=== PATIENT | female | born 1980 | race Caucasian/White ===

== ENCOUNTER 2018-10-16 04:52 | Inpatient (IN) | payer OTHER ==
[~2018-10-16] VITALS: Ht 165.1 cm; Wt 72.6 kg
[2018-10-16] VITALS (44 sets, daily range): BP systolic 114–164; BP diastolic 52–105
[~2018-10-16 04:52] MED LIST: HYDROCODONE-AP1 EAC6 PO; IBUPROFEN 400400 M2 PO; LEVEMIR SUBQ; NORCO 5-325 TA1 EACH PO; NOVOLOG100 UNIT/1 SUBQ; PAXIL10 MG; PEPCID20 MG PO; POTASSIUM20 PO; ZOFRAN ODT4 MG DISSOLVE; ZOFRAN ODT8 MG PO
[2018-10-16 05:10] LABS: URINE BLOOD TRACE (Negative); URINE CLARITY SL CLOUDY; URINE COLOR YELLOW; URINE GLUCOSE-RANDOM* 2+ (Negative); URINE KETONES 3+ (Negative); URINE LEUKOCYTES-REFLEX TRACE (Negative); URINE NITRITE-REFLEX NEGATIVE (Negative); URINE PROTEIN (DIPSTICK) 1+ (Negative); URINE SPECIFIC GRAVITY >= 1.030 (1.005-1.035); URINE UROBILINOGEN 0.2 E.U./dl (0.2-1.0)
[2018-10-16 05:10] LABS: ABSOLUTE NEUTROPHILS 4.9 thou/uL (1.4-8.2); BASOPHILS 0.6 % (0.0-2.0); EOSINOPHILS 0.2 % (0.0-3.0); HEMATOCRIT 42.9 % (37.0-47.0); LYMPHOCYTES 21.1 % (24.0-44.0); MCH 28.9 pg (26.0-34.0); MCHC 32.7 g/dL (28.0-37.0); MCV 88.4 fL (80.0-100.0); MONOCYTES 6.8 % (1.0-8.0); PLATELET COUNT 323 thou/uL (150-400); POLYS 71.3 % (36.0-66.0); RBC 4.85 mil/uL (4.20-5.00); RDW 14.4 % (10.5-14.5); WBC 6.9 thou/uL (4.0-11.0)
[2018-10-16 05:18] LABS: ICTOTEST (BILI CONFIRMATORY) Negative (Negative); URINE BILIRUBIN NEGATIVE (Negative)
[2018-10-16 05:26] LABS: CALCIUM 9.3 mg/dL (8.5-10.1); CREATININE 0.9 mg/dL (0.6-1.0); POTASSIUM 4.4 mmol/L (3.5-5.1)
[2018-10-16 05:28] LABS: BACTERIA-REFLEX 1-9 Few /HPF (None Seen); CASTS None Seen /LPF (None Seen); CRYSTALS None Seen /LPF (None Seen); MUCUS 0-3 Light strn/LPF (None Seen); SQUAMOUS >10 Many /LPF (0-3); URINE RBC 3-10 Few /HPF (0-2)
[2018-10-16 05:29] LABS: AMORPHOUS URATES Moderate /LPF (None Seen)
[2018-10-16 05:31] LABS: ALBUMIN 3.6 g/dL (3.4-5.0); TOTAL BILIRUBIN 0.9 mg/dL (<0.1-1.0); TOTAL PROTEIN 7.7 g/dL (6.4-8.2)
[2018-10-16 06:02] LABS: CALCIUM 9.3 mg/dL (8.5-10.1); CREATININE 0.9 mg/dL (0.6-1.0); POTASSIUM 4.3 mmol/L (3.5-5.1)
[2018-10-16 06:06] LABS: ALBUMIN 3.6 g/dL (3.4-5.0); MAGNESIUM 1.7 mg/dL (1.8-2.4); PHOSPHORUS 3.7 mg/dL (2.5-4.9)
[2018-10-16 06:40] LABS: HCO3 10.3 mmol/L (22.0-26.0); PCO2 26.4 mmHg (35.0-45.0); sO2 96.5 % (92.0-98.0)
[2018-10-16 06:41] LABS: pH 7.207 (7.360-7.450)
--- NOTE | 2018-10-16 07:00 | NUR ---
ADMISSION NOTE: PT ARRIVED AT APPROX 0650 10/16/18, PT ALERT AND ORIENTED X 4, BUT ABLE TO FOLLOW ALL COMMANDS, MAG INFUSING AT ARRIVAL. PT ON RA, SATS IN THE HIGH 90'S, PT ST ON THE MONITOR. WILL NOTIFY DR DOWNEY ON PT ARRIVAL, AND WILL FOLLOW DKA PROTOCOL.
[2018-10-16 09:33] LABS: CALCIUM 8.1 mg/dL (8.5-10.1); CREATININE 0.9 mg/dL (0.6-1.0); MAGNESIUM 1.9 mg/dL (1.8-2.4); PHOSPHORUS 2.7 mg/dL (2.5-4.9)
[2018-10-16 13:47] LABS: ALBUMIN 2.8 g/dL (3.4-5.0); CALCIUM 8.2 mg/dL (8.5-10.1); CREATININE 0.8 mg/dL (0.6-1.0); MAGNESIUM 1.9 mg/dL (1.8-2.4); PHOSPHORUS 2.3 mg/dL (2.5-4.9); POTASSIUM 4.2 mmol/L (3.5-5.1)
--- NOTE | 2018-10-16 18:32 | NUR ---
ASSUMED CARE @ 0650 10/16/18, PT ASSESSMENTS AND VS COMPLETE PER ICU PROTOCOL, PT ALERT AND ORIENTED X 4, PT ABLE TO FOLLOW COMMANDS. PT ST; PAC'S, PT AFEBRILE, NO EDEMA PRESENT. PT ON RA, NO SIGNS OF SOA. PT NOW OFF INSULIN GTT, NOW ON SLIDING SCALE, LANTUS AT NIGHT, CARB CONTROLLED DIET IN PLACE. PT ABLE TO VOID, GOP NOTED. CC TELE ORDERS IN PLACE. PLAN OF CARE- AID IN TRANSITION FOR TRANSFER.
--- NOTE | 2018-10-16 22:11 | NUR ---
Pt with stable VS and no c/o nausea. PRN fentanyl given for c/o headache with some relief achieved. Report called to next RN and pt awaiting transfer to room 349.
[2018-10-17] VITALS: BP 150/104
[2018-10-17 02:30] VITALS: BP 149/105
--- NOTE | 2018-10-17 05:37 | NUR ---
PT WAS A TRANSFER FROM ICU. CHIEF COMPLIANT WAS HEADACHE. PT STATES FENTANYL RELIEF IS SHORT LIVED. PT STARTED HAVING NAUSEA. CALLED PROVIDER 2X AND RECEIVED ORDERS FOR NAUSEA MEDICATION, AND BENADRYL. ALSO PT BLOOD PRESSURE WAS TRENDING HIGHER, POSSIBLY DUE TO PAIN. GAVE ONE TIME DOSE OF IV HYDRALAZINE, AND STARTED PT ON METOTROPOLOL XL. FOLLOWING POC WITH IVF. HOURLY ROUNDING.
[2018-10-17 05:56] LABS: CALCIUM 8.3 mg/dL (8.5-10.1); CREATININE 0.6 mg/dL (0.6-1.0); MAGNESIUM 1.6 mg/dL (1.8-2.4); PHOSPHORUS 2.1 mg/dL (2.5-4.9); POTASSIUM 4.2 mmol/L (3.5-5.1)
[2018-10-17 07:51] VITALS: BP 166/94
[2018-10-17 11:38] VITALS: BP 142/99
--- NOTE | 2018-10-17 16:33 | NUR ---
Assumed care of Pt at 0700. Pt AOx4 complaining of headache. Good relief with Tramadol. BP showing improvement. Headache appears to be subsiding. ambulating indepedently in hallways. IV fluids infusing per order. sinus rhythm and atrial bigeminy on telemetry. good progress toward poc goals.
[2018-10-17 16:49] VITALS: BP 128/74
[2018-10-17 19:15] VITALS: BP 120/76
[2018-10-18 04:10] VITALS: BP 121/74
[2018-10-18 04:57] LABS: HEMATOCRIT 38.4 % (37.0-47.0); HEMOGLOBIN 12.7 gm/dL (12.0-15.0); MCH 28.6 pg (26.0-34.0); MCHC 33.1 g/dL (28.0-37.0); MCV 86.3 fL (80.0-100.0); RBC 4.45 mil/uL (4.20-5.00); WBC 6.2 thou/uL (4.0-11.0)
[2018-10-18 05:07] LABS: PLATELET COUNT 242 thou/uL (150-400)
[2018-10-18 05:08] LABS: CALCIUM 8.6 mg/dL (8.5-10.1); CREATININE 0.5 mg/dL (0.6-1.0); POTASSIUM 3.4 mmol/L (3.5-5.1)
[2018-10-18 05:14] LABS: ALBUMIN 2.9 g/dL (3.4-5.0); MAGNESIUM 1.7 mg/dL (1.8-2.4); TOTAL BILIRUBIN 0.6 mg/dL (<0.1-1.0)
--- NOTE | 2018-10-18 05:38 | NUR ---
REMOVED IV IN PTS RIGHT HAND IT HAD CLOTTED OFF. PT STATES NO N/V NOR HEADACHE. PT RESTED COMFORTABLY ALL EVENING. HOURLY ROUNDING.
[2018-10-18 06:20] LABS: ABSOLUTE NEUTROPHILS 2.4 thou/uL (1.4-8.2); ATYPICAL LYMPHS 1 %
[2018-10-18 07:02] VITALS: BP 147/94
[2018-10-18 09:03] VITALS: BP 147/94
[2018-10-18 10:21] VITALS: BP 147/94
--- NOTE | 2018-10-18 11:32 | NUR ---
Assumed care of Pt at 0700. pt hypoglycemic this morning - asymptomatic - sugar improved after couple of juice boxes. denies headache. blood pressure improved. up ad matt w/ steady gait. stable for d/c. all questions and concerns addressed w/ patient.
== END 2018-10-18 11:15 | disposition home or self-care (01) | DRG 639 ==
LOC: ER 04:52 → EROBS 05:41 → ICU 06:24 → 3W 22:58
PROVIDERS: Emergency Medicine; ADMIT Family Medicine
DX: E11.10 Type 2 diabetes mellitus with ketoacidosis without coma (principal); E86.0 Dehydration; R51 Headache; I16.0 Hypertensive urgency; Z79.4 Long term (current) use of insulin; Z79.1 Long term (current) use of non-steroidal anti-inflammatories (NSAID); Z79.899 Other long term (current) drug therapy
CPT/HCPCS: 10779

== ENCOUNTER 2019-07-29 21:18 | Inpatient (IN) | payer OTHER ==
[~2019-07-29] VITALS: Ht 165.1 cm; Wt 64.9 kg
[~2019-07-29 21:18] MED LIST changes: +HUMALOG100 UNIT/1 SUBQ; +LEVEMIR100 UNIT/1 SUBQ
[2019-07-29 21:37] VITALS: BP 135/84
[2019-07-29] MEDS ORDERED: LISINOPRIL PO (21:43)
[2019-07-29 21:45] LABS: ABSOLUTE NEUTROPHILS 16.1 thou/uL (1.4-8.2); BASOPHILS 0.5 % (0.0-2.0); HEMATOCRIT 47.2 % (37.0-47.0); HEMOGLOBIN 14.9 gm/dL (12.0-15.0); LYMPHOCYTES 5.7 % (24.0-44.0); MCH 28.5 pg (26.0-34.0); MCHC 31.5 g/dL (28.0-37.0); MCV 90.5 fL (80.0-100.0); MONOCYTES 6.2 % (1.0-8.0); PLATELET COUNT 432 thou/uL (150-400); POLYS 87.6 % (36.0-66.0); RBC 5.22 mil/uL (4.20-5.00); RDW 14.5 % (10.5-14.5); WBC 18.4 thou/uL (4.0-11.0)
[2019-07-29 21:49] LABS: CALCIUM 10.6 mg/dL (8.5-10.1); CREATININE 1.3 mg/dL (0.6-1.0)
[2019-07-29 21:55] LABS: TOTAL BILIRUBIN 0.6 mg/dL (<0.1-1.0); TOTAL PROTEIN 8.9 g/dL (6.4-8.2)
[2019-07-29 22:16] LABS: MAGNESIUM 2.1 mg/dL (1.8-2.4); PHOSPHORUS 2.8 mg/dL (2.5-4.9)
[2019-07-29 23:31] LABS: URINE BILIRUBIN 2+ (Negative); URINE BLOOD TRACE (Negative); URINE CLARITY CLEAR; URINE COLOR YELLOW; URINE GLUCOSE-RANDOM* 2+ (Negative); URINE KETONES 3+ (Negative); URINE LEUKOCYTES-REFLEX NEGATIVE (Negative); URINE NITRITE-REFLEX NEGATIVE (Negative); URINE PROTEIN (DIPSTICK) TRACE (Negative); URINE SPECIFIC GRAVITY >= 1.030 (1.005-1.035); URINE UROBILINOGEN 0.2 E.U./dl (0.2-1.0)
[2019-07-30] VITALS (28 sets, daily range): BP systolic 122–155; BP diastolic 54–86
[2019-07-30 01:41] LABS: CALCIUM 8.3 mg/dL (8.5-10.1); CREATININE 1.1 mg/dL (0.6-1.0); MAGNESIUM 1.9 mg/dL (1.8-2.4); PHOSPHORUS 2.8 mg/dL (2.5-4.9); POTASSIUM 3.9 mmol/L (3.5-5.1)
[2019-07-30 05:41] LABS: CALCIUM 8.5 mg/dL (8.5-10.1)
[2019-07-30 05:44] LABS: PHOSPHORUS 2.1 mg/dL (2.5-4.9)
--- NOTE | 2019-07-30 08:05 | EKG ---
[facility] [place] [address] ELECTROCARDIOGRAM REPORT Name: LUPE ACEVES Room #: 243-P ADM IN M.R.#: [id number] Admission: 07/29/19 Attend Phys: Jimmy Romero MD Discharge: Date of : 76 Report #: [id number] THIS REPORT FOR: cc: Jimmy Romero MD, Neal A. MD Lundgren, Craig H. 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 Hall : 1980 Requested By: Pierce Kc Order Number: [id number] MD: Raffaele Navarro Measurements Intervals [place] Rate: 124 P: 75 OK: 179 QRS: 37 QRSD: 89 T: -44 QT: 359 QTc: 516 Interpretive Statements Sinus tachycardia Consider biatrial enlargement Abnormal T, consider ischemia, diffuse leads Prolonged QT interval Baseline wander in lead(s) V1 Compared to ECG 09/28/2017 02:33:16 Nonspecific change in the ST and T-wave segments Electronically Signed On 07-30-2019 8:04:19 NOVELTY TWISTER OPERATOR by Raffaele Navarro [email or web address] <ELECTRONICALLY SIGNED> By: Raffaele Navarro MD, [facility] 07/30/19 0804 47 47 Raffaele Navarro MD, [facility] /EPI
--- NOTE | 2019-07-30 08:07 | NUR ---
0038: Pt admitted to ICU room 243. c/o of severe headached aggravated by light and movement, and nausea. DKA protocol started. 0200: Pt up with assist x1 to void. Still feels "queasy", but no vomitting. 0630: Labs drawn through shift per protocol. Insulin gtt titrated to keep blood sugar 100-130, has been on 3 units/hour since 299. Anion Gap down to 15 at 0530 lab draw. Pt still c/o of severe headache; has been been receiving Fentanyl 12.5 mcg IVP approximately q 2-3 hours without much relief.
--- NOTE | 2019-07-30 10:05 | NUR ---
Nutrition: pt admitted to ICU with DKA, N/V, headache. Hx brittle DM. Anion gap closed and diet just advanced to carb controlled this am. Pt drank some milk. Was sleeping soundly so did not disturb. Per ICU rounds, pt suffering severe headaches, possibly migraine. Recent return from cruise, physician suspects DKA related to recent vacation/exhaustion. BG 202-222. No recent A1C. Continues on insulin drip. Some weight discrepancies. Weight taken at 133# and also weighed this on April admit (DKA) but pt reported weights around 152#. Will followup on weight/po trends next week. RD available for education needs if warranted. Followup 08/01 or 08/02.
--- NOTE | 2019-07-30 14:19 | NUR ---
chart review, cm consulted for education?. cm visited with pt quietly in room with light off. pt has towel over her head rt big head ache. intro dcp and cm. pt reported has dm supplies and home, that work. she independent, she employee of [employer]. no past hh or rehab. "/ana. no concerns or needs voiced during visit. will cont following as needed for dc needs.
--- NOTE | 2019-07-30 16:59 | NUR ---
ANION GAP NOW 15. INSULIN DRIP OFF AT 1330. CARB CONTROLLED DIET WITH VERY POOR APPETITE. D51/2 NS WITH 20 MEQ OF KCL CHANGED TO NS AT 150ML/HR. STRUGGLING WITH PAIN CONTROL. FENTANYL 25MCG NOT EFFECTIVE. NOW ON 10MG OXY IR. BETTER RELIEF.
[2019-07-31] VITALS (18 sets, daily range): BP systolic 136–166; BP diastolic 82–99
--- NOTE | 2019-07-31 04:12 | NUR ---
NO OVERNIGHT EVENTS. PT. SLEPT WELL THROUGH MOST OF SHIFT WITH MINIMAL PAIN FROM HEADACHE. NO COMPLAINTS OF N/V. UP X2 TO THE BATHROOM WITH MINIMAL ASSIST. SEEMS TO BE TOLERATING PO BETTER THIS SHIFT. PT. IS PROGRESSING TOWARDS GOALS. CONTINUE POC. PT. HOPEFUL TO GO HOME TODAY. WILL CONTINUE TO MONITOR.
[2019-07-31 05:06] LABS: ABSOLUTE NEUTROPHILS 4.1 thou/uL (1.4-8.2); BASOPHILS 0.3 % (0.0-2.0); EOSINOPHILS 0.4 % (0.0-3.0); HEMATOCRIT 34.7 % (37.0-47.0); LYMPHOCYTES 28.3 % (24.0-44.0); MCH 28.9 pg (26.0-34.0); MCV 90.4 fL (80.0-100.0); MONOCYTES 9.9 % (1.0-8.0); POLYS 61.1 % (36.0-66.0); RBC 3.83 mil/uL (4.20-5.00); RDW 14.5 % (10.5-14.5); WBC 6.6 thou/uL (4.0-11.0)
[2019-07-31 05:07] LABS: HEMOGLOBIN 11.1 gm/dL (12.0-15.0); PLATELET COUNT 233 thou/uL (150-400)
[2019-07-31 05:37] LABS: CALCIUM 8.2 mg/dL (8.5-10.1); CREATININE 0.7 mg/dL (0.6-1.0); POTASSIUM 3.9 mmol/L (3.5-5.1)
[2019-07-31 05:40] LABS: ALBUMIN 2.3 g/dL (3.4-5.0); TOTAL BILIRUBIN 0.6 mg/dL (<0.1-1.0); TOTAL PROTEIN 5.6 g/dL (6.4-8.2)
[2019-07-31] MEDS ORDERED: HUMALOG100 UNIT/1 SUBQ (12:50)
[2019-07-31 12:58] LABS: CHOLESTEROL 155 mg/dL (<200); HDL CHOLESTEROL 51 mg/dL (>40); LDL CHOLESTEROL 90 mg/dL (<100); TRIGLYCERIDE 73 mg/dL (<150); VLDL 15 mg/dL (<40)
--- NOTE | 2019-07-31 15:20 | NUR ---
DENIES HEADACHE DISCOMFORT. UP IN CHAIR PER PT PREFERENCE FOR BREAKFAST. ST, ROOM AIR, TOLERATING MEALS, DENIES ABDOMINAL DISCOMFORT, VOIDING ADEQUATE URINE. DR. CLAY PRESENT TO SEE PT AND EMPHASIZED THE IMPORTANCE OF TAKING LONG ACTING INSULIN EVEN WHEN NOT EATING SINCE SHE IS A TYPE 1 DIABETIC. INSULIN ADMINISTRATION ADJUSTED. DR. BOOTHE PRESENT TO SEE PT. DISCUSSED PLAN OF CARE REGARDING INSULIN. PT HAS HAND WRITTEN NOTES REGARDING CHANGES TO INSULIN. AMBULATED ALL AROUND THE ICU SEVERAL TIMES WITH STAND BY ASSIST OF RN, WELL TOLERATED. PT DISCHARGING HOME. IV DC'D. FAMILY PRESENT TO ASSIST PT TO HOME. SEE DISCHARGE INSTRUCTIONS FOR DETAILS.
[2019-08-01 00:06] LABS: GLYCOHEMOGLOBIN (HGB A1C) 10.7 % (4.8-5.6)
--- NOTE | 2019-08-01 12:47 | HC ---
[facility] [place] [address] CONSULTATION Name: LUPE ACEVES Room #: 243-P [facility] IN M.R.#: [id number] Admission: 07/29/19 Attend Phys: Jimmy Romero MD Discharge: 07/31/19 Date of : 76 Report #: [id number] THIS REPORT FOR: cc: Jimmy Romero MD, Neal A. MD Al-Mubaslat, Ahmad MD ~ CC: Jimmy Romero DATE OF SERVICE: 07/31/2019 ENDOCRINE CONSULTATION NOTE CONSULTING PHYSICIAN: Dr. Romero. REASON FOR CONSULTATION: DKA, uncontrolled type 1 diabetes mellitus. HISTORY OF PRESENT ILLNESS: This is a 39-year-old female patient whose medical background is significant for type 1 diabetes mellitus diagnosed in 2010 as well as hypertension. The patient is maintained on a combination of Toujeo insulin 10 units twice a day as well as Humalog insulin taken as per an insulin to carbohydrate ratio of 1:10. She notes that she has had blood glucose values that are mostly in the high 100 to low 200 range and no issues with hypoglycemia over the past few months. She is not aware of her most recent hemoglobin A1c. The patient indicates that she gets routine eye exams and that she has not had an issue with diabetic retinopathy, nephropathy or neuropathy. Additionally, the patient has hypertension and reports that it is well controlled on lisinopril 10 mg daily. The patient was at her usual state of health until the day before presentation when she was tired from a trip she had and slept all day and not taken her insulin. Subsequently, she woke up with severe headaches, nausea, vomiting and presented to the ER where she was found to be in diabetic ketoacidosis. Subsequently, she was admitted to the ICU where she was managed with IV insulin and IV fluid support for 24 hours. REVIEW OF SYSTEMS: CONSTITUTIONAL: Fatigue, tiredness, but not fever or chills or body weight changes. HEENT: Negative for sore throat, sinus pain or ear drainage. PULMONARY: Negative for shortness of breath, cough or hemoptysis. CARDIAC: Negative for chest pain, palpitations, syncope or presyncope. GASTROINTESTINAL: Abdominal discomfort, nausea, vomiting. NEUROLOGY: Headaches, but not seizure activity or loss of consciousness. PSYCHIATRIC: Negative for delusions, hallucinations. UROLOGY: Negative for dysuria, hematuria. Otherwise, review of systems [address] [address] CONSULTATION Name: LUPE ACEVES Room #: 243-P [facility] IN ..#: [id number] Admission: 07/29/19 Attend Phys: Jimmy Romero MD Discharge: 07/31/19 Date of : 76 Report #: [id number] noncontributory other than those mentioned in HPI. PAST MEDICAL HISTORY: 1. Type 1 diabetes mellitus with multiple DKA episodes in the past. 2. Hypertension. 3. Scoliosis. 4. Right arm DVT. OUTPATIENT MEDICATIONS: Toujeo 10 units b.i.d., Humalog insulin 1 unit per 10 g of carbohydrates amounting to about 7-8 units per meal 2-3 times a day, lisinopril 10 mg daily. ALLERGIES: MORPHINE. FAMILY HISTORY: Noncontributory. 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 She is and has 3 children. PHYSICAL EXAMINATION: GENERAL: Pleasant, not in pain or distress. VITAL SIGNS: Blood pressure is 143/88 mmHg, heart rate is 109 beats per minute, respirations 17 per minute, temperature 37.2 degrees. CONSTITUTIONAL: Sitting up in her recliner, looking comfortable, not in apparent distress. HEENT: Anicteric sclerae. Intact extraocular motions. NECK: Supple without JVD, carotid bruits or lymphadenopathy. I do not appreciate thyromegaly. CHEST: Clear to auscultation with good air entry bilaterally. No wheeze or crackles. HEART: Regular rate and rhythm without murmurs or gallops. ABDOMEN: Soft, lax. No guarding. Active bowel sounds. EXTREMITIES: Lower extremity exam is noted for trace edema. No skin breaks, ulcerations. Pedal pulses are appreciated. Sensation to light touch is intact. NEUROLOGIC: Awake, alert and oriented to time, place and person. The remainder of her examination is nonfocal. PSYCHIATRIC: Pleasant, interactive, appropriate. Normal mood and affect. LABORATORY RESULTS: On presentation, the patient had blood glucose values just over 200 and has since maintained blood glucose range between 122 and 328 mg/dL. Her most recent value was 200 mg/dL. Sodium 137, potassium 3.9, chloride 104, CO2 of 18, anion gap 15, BUN 10, creatinine 0.7, AST 15, lipase 66. Total bilirubin 0.6, direct bilirubin 0.2, calcium 8.2, phosphorus 2.1, magnesium 2.0, alkaline phosphatase 82, ALT 19, total protein 5.6, albumin 2.3, EGFR 92. Lactic acid 1.3. Troponin is negative. White blood count 6.6, hemoglobin 11.1, [facility] [address] [place] [address] CONSULTATION Name: LUPE ACEVES Room #: 243-P DIS IN Yeni#: [id number] Admission: 07/29/19 Attend Phys: Jimmy Romero MD Discharge: 07/31/19 Date of : 76 Report #: [id number] hematocrit 34.7, platelets 233, +3 urine ketone, TSH 2.011. Hemoglobin A1c in 2014 was 10.3. ASSESSMENT AND PLAN: 1. Diabetic ketoacidosis. The patient presents in diabetic ketoacidosis and has done well with 24 hours of intravenous insulin, intravenous fluid support. Diabetic ketoacidosis has resolved at this point in time. 2. Type 1 diabetes mellitus. This has been uncontrolled as per her reported blood glucose values at home. The patient and I had a lengthy discussion about the necessity of pursuing and achieving adequate glycemic control so as to avoid long-term diabetic complications. Based on her reported blood glucose values, I advised that her Toujeo changes to 12 units twice a day and that she adjusts her insulin to carbohydrates ratio to 1:9, which will gatica a 10% increase in her food coverage insulin bolus. Also, the patient and I talked about the possibility of pursuing insulin pump therapy for more dynamic insulin therapy and to meet her active lifestyle, which she seemed to be motivated to do. I would like to get a hemoglobin A1c to get a better feel for her overall level of control as of recently. 3. Hypertension. The patient's blood pressure control has been marginal during her hospital stay, but she has not been getting her lisinopril therapy here, I will defer this to her primary care team. 4. Hyperlipidemia. As a diabetic, adequate lipid control is certainly necessary. I will check a lipid panel to assess her current therapeutic needs. I certainly appreciate this consultation by Dr. Romero. <ELECTRONICALLY SIGNED> By: Angelo Chao MD 08/01/19 1247 [id number] [id number] Angelo Chao MD /nt
== END 2019-07-31 16:00 | disposition home or self-care (01) | DRG 639 ==
LOC: ER 21:18 → ICU 23:26 → EROBS 23:26 → ICU 07-30 00:34
PROVIDERS: Emergency Medicine; Internal Medicine; ADMIT Family Medicine
DX: E11.10 Type 2 diabetes mellitus with ketoacidosis without coma (principal); I10 Essential (primary) hypertension; E78.5 Hyperlipidemia, unspecified; Z83.3 Family history of diabetes mellitus; Z87.891 Personal history of nicotine dependence; Z88.6 Allergy status to analgesic agent; Z86.718 Personal history of other venous thrombosis and embolism; Z79.899 Other long term (current) drug therapy
CPT/HCPCS: 10078

== ENCOUNTER 2020-02-20 03:26 | Inpatient (IN) | payer OTHER ==
[~2020-02-20] VITALS: Ht 165.1 cm; Wt 65.8 kg
[2020-02-20] VITALS (29 sets, daily range): BP systolic 116–164; BP diastolic 48–90
[~2020-02-20 03:26] MED LIST changes: +LISINOPRIL PO
[2020-02-20 04:12] LABS: ABSOLUTE NEUTROPHILS 16.5 thou/uL (1.4-8.2); BASOPHILS 0.6 % (0.0-2.0); HEMATOCRIT 42.6 % (37.0-47.0); HEMOGLOBIN 13.3 gm/dL (12.0-15.0); LYMPHOCYTES 3.1 % (24.0-44.0); MCH 28.1 pg (26.0-34.0); MCHC 31.3 g/dL (28.0-37.0); MCV 89.8 fL (80.0-100.0); MONOCYTES 2.5 % (1.0-8.0); PLATELET COUNT 382 thou/uL (150-400); POLYS 93.8 % (36.0-66.0); RBC 4.74 mil/uL (4.20-5.00); RDW 15.1 % (10.5-14.5); WBC 17.6 thou/uL (4.0-11.0)
[2020-02-20 04:26] LABS: ALBUMIN 3.7 g/dL (3.4-5.0); CALCIUM 9.8 mg/dL (8.5-10.1); CREATININE 1.3 mg/dL (0.6-1.0); POTASSIUM 4.9 mmol/L (3.5-5.1); TOTAL BILIRUBIN 0.7 mg/dL (0.2-1.0); TOTAL PROTEIN 8.4 g/dL (6.4-8.2)
[2020-02-20 04:34] LABS: URINE BILIRUBIN NEGATIVE (Negative); URINE BLOOD 3+ (Negative); URINE CLARITY CLEAR; URINE COLOR YELLOW; URINE GLUCOSE-RANDOM* 3+ (Negative); URINE KETONES 3+ (Negative); URINE LEUKOCYTES-REFLEX NEGATIVE (Negative); URINE NITRITE-REFLEX NEGATIVE (Negative); URINE PROTEIN (DIPSTICK) NEGATIVE (Negative); URINE SPECIFIC GRAVITY 1.025 (1.005-1.035); URINE UROBILINOGEN 0.2 E.U./dl (0.2-1.0)
[2020-02-20 04:52] LABS: BE(vivo) -22.4 mmol/L (-2 to +3); HCO3 6.3 mmol/L (22.0-26.0); PCO2 VENOUS 22.7 mmHg (41.0-51.0); PO2 VENOUS 75.7 mmHg (35.0-45.0)
[2020-02-20 04:58] LABS: BACTERIA-REFLEX None Seen /HPF (None Seen); CASTS None Seen /LPF (None Seen); CRYSTALS None Seen /LPF (None Seen); MUCUS None Seen strn/LPF (None Seen); SQUAMOUS None Seen /LPF (0-3); URINE RBC 0-2 Rare /HPF (0-2); URINE WBC-REFLEX None Seen /HPF (0-5)
--- NOTE | 2020-02-20 05:30 | NUR ---
39 Y/O FEMALE PT OF DR GALLEGOS AdMITTED TO ICU FROM ER WITH DX OF DKA. AWAKE AND ALERT. C/O HEADACHE. UP TO TOILET VOIDED 400 CC CLEAR VIPUL URINE. REMAINS IN SINUS TACH WILL CONT TO MONITOR.
--- NOTE | 2020-02-20 05:40 | NUR ---
ACCUCHECK 408 INSULIN GTT STARTED AT 3 UNITS. WILL CONT TO MONITOR.
[2020-02-20 05:47] LABS: LARGE PLATELETS FEW; PLATELET ESTIMATE NORMAL
[2020-02-20 05:59] LABS: MAGNESIUM 2.3 mg/dL (1.8-2.4); PHOSPHORUS 5.8 mg/dL (2.5-4.9); TROPONIN-I <0.06 ng/mL (<0.06)
--- NOTE | 2020-02-20 07:48 | NUR ---
currently having emesis. zofran and fentanyl administered.
[2020-02-20 08:48] LABS: ALBUMIN 3.6 g/dL (3.4-5.0); CALCIUM 8.5 mg/dL (8.5-10.1); CREATININE 0.9 mg/dL (0.6-1.0); POTASSIUM 4.2 mmol/L (3.5-5.1); TOTAL BILIRUBIN 0.4 mg/dL (0.2-1.0); TOTAL PROTEIN 7.2 g/dL (6.4-8.2)
[2020-02-20 12:58] LABS: ALBUMIN 3.5 g/dL (3.4-5.0); CALCIUM 8.5 mg/dL (8.5-10.1); CREATININE 0.8 mg/dL (0.6-1.0); PHOSPHORUS 1.7 mg/dL (2.5-4.9); POTASSIUM 3.7 mmol/L (3.5-5.1)
--- NOTE | 2020-02-20 14:54 | NUR ---
RESTING WHEN UNDISTURBED, CONTINUES TO HAVE MIGRAINE HEADACHE DESPITE ZOFRAN, FENTANYL AND ATIVAN ADMINISTRATION. WHEN CONSULT CALLED TO DR. BOOTHE, THE ANSWERING SERVICE REFERRED THE CONSULT BACK TO THE PRIMARY MD OR HOSPITALIST, DR. GALLEGOS NOTIFIED. ALSO NOTIFIED ANION GAP CLOSED. RECEIVED ORDERS FOR SLIDING SCALE INSULIN. DAIJA ACEVES, SPOUSE PRESENT TO PROVIDE SUPPORT.
[2020-02-20 16:28] LABS: ALBUMIN 2.9 g/dL (3.4-5.0); CALCIUM 8.5 mg/dL (8.5-10.1); CREATININE 0.9 mg/dL (0.6-1.0); PHOSPHORUS 2.6 mg/dL (2.5-4.9); POTASSIUM 4.3 mmol/L (3.5-5.1)
[2020-02-21] VITALS (16 sets, daily range): BP systolic 128–178; BP diastolic 72–100
[2020-02-21 04:56] LABS: CALCIUM 8.4 mg/dL (8.5-10.1); CREATININE 0.6 mg/dL (0.6-1.0); PHOSPHORUS 1.9 mg/dL (2.5-4.9); POTASSIUM 3.8 mmol/L (3.5-5.1)
[2020-02-21 05:20] LABS: ALBUMIN 2.8 g/dL (3.4-5.0)
--- NOTE | 2020-02-21 06:00 | NUR ---
AWAKE AND ALERT, WANTING TO ORDER BKF. STILL C/O OF FRONTAL HEADACHE TORADOL [place] Q 6 HRS AND FENTANYL PRN. UP TO TOILET. VOIODED 1200 CC AMBERT URINE. PT IS ANXIOUS TO GO HOME TODAY. ACCUCHECK 124 AT 0600 SS INSULIN WILL CONT TO MONITOR.
--- NOTE | 2020-02-21 11:00 | NUR ---
pt dc home today, no needs. spouse to transport her home. able to tolerate diet and head ach improving. will cont following as needed for dc needs.
--- NOTE | 2020-02-21 12:43 | NUR ---
RD consult received for diabetes diet education. Pt with hx diabetes, DKA admission in 07/2019. Visited this pt around 1130 today, sleeping with lights out in room. Awakened with questioning but voices no concerns or questions with diet and refused need for further diabetes education. Pts last A1C from July was 10.7. Would recommend a repeat A1C. Discharge pending today. Available if pt changes mind or has any dietary questions before dc.
--- NOTE | 2020-02-21 14:29 | NUR ---
PT STATES THAT HEADACHE IS IMPROVED TODAY AND NAUSEA IS RESOLVED. ABLE TO TOLERATE BREAKFAST AND LUNCH TODAY. ORDER TO DISCHARGE TO HOME FOLLOWING LUNCH. DR GALLEGOS CALLED AND UPDATED FOLLOWING LUNCH AND OK TO DISCHARGE. IV REMOVED PRIOR TO DISCHARGE. PT'S HERE TO TRANSPORT HOME. DISHARGED HOME BY PRIVATE CAR.
== END 2020-02-21 14:15 | disposition home or self-care (01) | DRG 639 ==
LOC: ER 03:26 → ICU 04:41 → EROBS 04:41 → ICU 05:46
PROVIDERS: Emergency Medicine; Internal Medicine; ADMIT Family Medicine; ATTEND Family Medicine
DX: E11.10 Type 2 diabetes mellitus with ketoacidosis without coma (principal); I10 Essential (primary) hypertension; G43.909 Migraine, unspecified, not intractable, without status migrainosus; E86.0 Dehydration; M41.9 Scoliosis, unspecified; Z86.718 Personal history of other venous thrombosis and embolism; Z79.4 Long term (current) use of insulin; Z79.899 Other long term (current) drug therapy
CPT/HCPCS: 10078; 10203

== ENCOUNTER → 2020-10-24 | Outpatient (CLI) | payer OTHER ==
[2020-10-24 15:05] LABS: ABSOLUTE NEUTROPHILS 3.4 thou/uL (1.4-8.2); EOSINOPHILS 4.2 % (0.0-3.0); HEMATOCRIT 34.3 % (37.0-47.0); HEMOGLOBIN 11.2 gm/dL (12.0-15.0); LYMPHOCYTES 30.3 % (24.0-44.0); MCH 28.1 pg (26.0-34.0); MCHC 32.5 g/dL (28.0-37.0); MCV 86.2 fL (80.0-100.0); MONOCYTES 7.4 % (1.0-8.0); PLATELET COUNT 298 thou/uL (150-400); POLYS 57.1 % (36.0-66.0); RBC 3.98 mil/uL (4.20-5.00); WBC 5.9 thou/uL (4.0-11.0)
[2020-10-24 15:22] LABS: ALBUMIN 2.8 g/dL (3.4-5.0); ANION GAP 14 mmol/L (7-16); BUN 14 mg/dL (7-18); CALCIUM 8.4 mg/dL (8.5-10.1); CHLORIDE 102 mmol/L (98-107); CHOLESTEROL 167 mg/dL (<200); CO2 23 mmol/L (21-32); CREATININE 0.8 mg/dL (0.6-1.0); GLUCOSE 212 mg/dL (74-106); HDL CHOLESTEROL 65 mg/dL (>40); LDL CHOLESTEROL 80 mg/dL (<100); POTASSIUM 3.8 mmol/L (3.5-5.1); SGOT 16 U/L (15-37); SGPT 22 U/L (30-65); SODIUM 139 mmol/L (136-145); TC:HDL 2.6 Ratio (Not establshd); TOTAL BILIRUBIN 0.2 mg/dL (0.2-1.0); TOTAL PROTEIN 6.5 g/dL (6.4-8.2); TRIGLYCERIDE 113 mg/dL (<150); VLDL 23 mg/dL (<40)
[2020-10-25 02:06] LABS: GLYCOHEMOGLOBIN (HGB A1C) 10.7 % (4.8-5.6)
== END ==
LOC: LAB 14:11
PROVIDERS: ATTEND Family Medicine
DX: E10.10 Type 1 diabetes mellitus with ketoacidosis without coma (principal)

== ENCOUNTER 2020-12-05 19:45 | Emergency (ER) | payer OTHER ==
[~2020-12-05] VITALS: Ht 165.1 cm; Wt 69.8 kg
[2020-12-05 19:52] VITALS: BP 132/68
[2020-12-05] MEDS ORDERED: TOUJEO MAX300 UNIT/1 SUBQ (19:57)
[2020-12-05] MEDS ORDERED: PROMETH-CODEIN 65 ML PO ×2 (20:40→22:46)
== END 2020-12-05 21:47 | disposition home or self-care (01) ==
LOC: ER 19:45
DX: R05 Cough (principal); R09.89 Other specified symptoms and signs involving the circulatory and respiratory systems; I10 Essential (primary) hypertension; G43.909 Migraine, unspecified, not intractable, without status migrainosus; E11.9 Type 2 diabetes mellitus without complications; Z79.4 Long term (current) use of insulin; Z79.899 Other long term (current) drug therapy; Z88.5 Allergy status to narcotic agent

== ENCOUNTER → 2021-03-21 | Outpatient (CLI) | payer OTHER ==
[~2021-03-21] MED LIST changes: +PROMETH-CODEIN 65 ML PO; +TOUJEO MAX300 UNIT/1 SUBQ
[2021-03-21 09:46] LABS: ALBUMIN 3.2 g/dL (3.4-5.0); ANION GAP 5 mmol/L (7-16); BUN 22 mg/dL (7-18); CALCIUM 9.2 mg/dL (8.5-10.1); CHLORIDE 105 mmol/L (98-107); CHOLESTEROL 172 mg/dL (<200); CO2 29 mmol/L (21-32); CREATININE 0.6 mg/dL (0.6-1.0); GLUCOSE 152 mg/dL (74-106); HDL CHOLESTEROL 75 mg/dL (>40); LDL CHOLESTEROL 83 mg/dL (<100); POTASSIUM 4.2 mmol/L (3.5-5.1); SGOT 13 U/L (15-37); SGPT 18 U/L (30-65); SODIUM 139 mmol/L (136-145); TC:HDL 2.3 Ratio (Not establshd); TOTAL BILIRUBIN 0.2 mg/dL (0.2-1.0); TOTAL PROTEIN 6.9 g/dL (6.4-8.2); TRIGLYCERIDE 70 mg/dL (<150); VLDL 14 mg/dL (<40)
[2021-03-22 00:06] LABS: CREATININE (ALB/CR) 44.8 mg/dL (Not Estab.); MICROALBUMIN-RND URINE 13.6 ug/mL (Not Estab.)
[2021-03-22 02:06] LABS: GLYCOHEMOGLOBIN (HGB A1C) 10.3 % (4.8-5.6)
== END ==
LOC: LAB 07:48
PROVIDERS: ATTEND Internal Medicine Endocrinology, Diabetes & Metabolism
DX: E10.65 Type 1 diabetes mellitus with hyperglycemia (principal); I10 Essential (primary) hypertension

== ENCOUNTER 2021-03-25 17:42 | Inpatient (IN) | payer OTHER ==
[~2021-03-25] VITALS: Ht 165.1 cm; Wt 68.5 kg
[2021-03-25 17:48] VITALS: BP 153/101
[2021-03-25 19:24] LABS: CALCIUM 8.5 mg/dL (8.5-10.1); CREATININE 0.8 mg/dL (0.6-1.0); POTASSIUM 3.4 mmol/L (3.5-5.1)
[2021-03-25 19:34] LABS: ALBUMIN 3.4 g/dL (3.4-5.0); TOTAL BILIRUBIN 0.4 mg/dL (0.2-1.0); TOTAL PROTEIN 7.4 g/dL (6.4-8.2)
[2021-03-26] MEDS ORDERED: TOUJEO MAX300 UNIT/1 SUBQ (02:21)
--- NOTE | 2021-03-26 07:30 | NUR ---
PT REPORTS THAT HER BS IS 306 AND ASKS ABOUT BREAKFAST TRAYS AND ORDERS FOR INSULIN
--- NOTE | 2021-03-26 08:58 | NUR ---
PT SITTING UP, EATING BREAKFAST AT THIS TIME
--- NOTE | 2021-03-26 09:05 | NUR ---
PT REPORTS THAT HER BS IS 182, DENIES TAKING HER OWN INSULIN. UPDATED NO NEW ODERS FOR INSULIN ADMIN AT THIS TIME AND PAGE OUT TO DR GALLEGOS
--- NOTE | 2021-03-26 10:38 | NUR ---
PT REPORTS THAT HER BS IS 287, UPDATED THAT DR GALLEGOS CALLED AND THEN STATED HE WOULD HAVE TO CALL BACK AT A LATER TIME
--- NOTE | 2021-03-26 13:09 | NUR ---
PT REPORTS THAT HER BS IS 363 AND THAT SHE PLANS ON TAKING HER OWN INSULIN THERE ARE NO ODERS IN PLACE BY ADMITTING DR AND DESPITE MULTIPLE ATTEMPTS BY THIS RN TO GET THE ORDERS, SHE WORRIES ABOUT DKA SHE GOES INTO DKA VERY EASILY IF SHE DOES NOT STAY ON TOP OF HER SUGARS. PT DECLINED LUNCH AND PLANS ON ONLY EATING THE BAG OF CHIPS ON HER TRAY. SHE REPORTS THAT SHE TOOK 4 UNITS OF HER SHORT ACTING INSULIN AND HAS QUESTIONS ABOUT HER LONG ACTING INSULINS WELL. THIS RN PLAN ON UPDATING DR GALLEGOS ONCE HE DOES CALL BACK ABOUT PT'S CONCERNS
--- NOTE | 2021-03-26 15:32 | NUR ---
PT HAD CONCERNS ABOUT HER INSULIN ORDERS BEING TO LOW. PAGED DR GALLEGOS AND HE STATES HE WILL PUT IN AN ORDER FOR A NEW SLIDING SCALE AND GIVES T/O FOR 9 UNITS OF LISPRO, SUBQ NOW
[2021-03-26 15:58] VITALS: BP 140/94
[2021-03-26 17:56] VITALS: BP 130/73
[2021-03-26 18:20] VITALS: BP 132/88
[2021-03-26 19:10] VITALS: BP 131/84
--- NOTE | 2021-03-26 23:17 | NUR ---
PRN PROVIDED FOR PAIN RIBS. CHEST TUBE INTACT AND TENDER. PT VERBALIZED CONCERN RE ELEVATED BLOOD GLUCOSES SINCE ADMISSION. PT STATED SHE IS TO KEEP HER BS AROUND 150. THAT 1 UNIT OF INSULIN DECREASES HER BLOOD SUGAR ABOUT 35 TO 50 RANGE. SO SHE ONLY WANTED 4 UNITS OF SLIDING SCALE THIS EVENING. SBA WITH TRANSFERS TO [facility]. PT DOES CALL FOR ASSISTANCE. PALE SKIN TONE. HR REMAINS LOW 100S.
[2021-03-27 01:05] VITALS: BP 131/92
[2021-03-27 05:11] VITALS: BP 142/86
--- NOTE | 2021-03-27 07:19 | NUR ---
PT REPORTED INCREASE IN L RIB CHEST TUBE SITE PAIN AFTER AM SNEEZE AND MOVING FOR CHEST XRAY. PT REPORTS IV MEDICATION NOT WORKING EFFECTIVELY BEFORE. PT OFFERED PO PAIN MED THIS AM, SINCE ALREADY HAD IV DOSE. DAY NURSE UPDATED RE PT WANTING DR TO BE CALLED FOR ADDITIONAL PAIN MEDICATION, DAY NURSE STATED SHE WILL CONTACT DR AND PT UPDATED.
[2021-03-27 07:23] VITALS: BP 151/100
[2021-03-27 09:17] LABS: CALCIUM 8.3 mg/dL (8.5-10.1); CREATININE 0.7 mg/dL (0.6-1.0); POTASSIUM 3.8 mmol/L (3.5-5.1)
[2021-03-27 11:28] VITALS: BP 124/86
[2021-03-27 14:58] VITALS: BP 128/75
--- NOTE | 2021-03-27 19:37 | NUR ---
RN ASSUMED PT'S CARE AT 0700-1900PM, PT IS A&OX4, PT IS ON RA, PT'S VS ARE STABLE, PT IS CONTINUIN PAIN MANAGEMENT, PT'S L CHEST TUBE HAS REMOVED TODAY, PT'S L RIB FX PAIN HAS IMPROVED, PT DENIES SOB AT DAY SHIFT.
[2021-03-27 20:07] VITALS: BP 114/66
[2021-03-28 04:23] VITALS: BP 113/62
[2021-03-28 07:03] VITALS: BP 119/65
[2021-03-28] MEDS ORDERED: OXYCODONE HCL 55 MG PO (07:45)
--- NOTE | 2021-03-28 07:53 | NUR ---
PT IS A&OX4 AND IS UP AD ENRICO. PT WITH RESIDUAL LEFT SIDED RIB PAIN, MEDICATED WITH PO OXYCODONE X2. PT HAS EXPRESSED DESIRE NOT TO USE IV PAIN MEDICATION IN PREPARATION FOR DISCHARGE. DRESSING TO LEFT CHEST IS C/D/I. INSULIN PER RESIDENT'S HOME REGIMEN. PT ON ROOM AIR WITH O2 SATS 96-98%
[2021-03-28 11:52] VITALS: BP 134/75
--- NOTE | 2021-03-28 14:54 | NUR ---
INITIAL ASSESSMENT: SW reviewed chart and opened case due to length of stay. Pt was admitted from home due to pneumothorax. Pt had fallen at home. Chest tube placed and was removed yesterday. Pt to have chest xray tomorrow and then will discharge home. Pt is alert/orientated x 4 and lives at home with her family. Prior to admission, pt was independent with ADLs. No use of DME. Pt's PCP is Dr. Romero. Plan is for pt to discharge home when medically stable. SW is following to assist as needed with discharge planning.
[2021-03-28 15:47] VITALS: BP 140/97
--- NOTE | 2021-03-28 17:54 | NUR ---
Patient is alert and oriented x4. Patient is up adlib and independant with most cares. Vinay reports minimal pain until she attempted to use the incentive spirometer this shift. Patient was given Fentanyl via iv at 1420 for left rib pain and she was given oxycodone at 1714. Patient reports that her pain was managed with both doses of pain medications. Patient has had a good appetitite this shift. Patient will continue to be monitored.
[2021-03-28 18:59] VITALS: BP 128/67
[2021-03-29 03:50] VITALS: BP 110/57
--- NOTE | 2021-03-29 07:13 | NUR ---
PT IS A&OX4, UP AD ENRICO, INDEPENDENT WITH ALL ADLS, AND IS LOOKING FORWARD TO DISCHARGE. SHE DID COMPLAIN OF PAIN THROUGHOUT THE NIGHT AND RECEIVED IV FENTANYL X3. SHE ALSO C/O NAUSEA AND RECEIVED ZOFRAN X1. HER IV INFILTRATED AROUND 0545, AND A NEW IV WAS PLACED IN THE RIGHT FOREARM AT APPROXIMATELY 0600. PT HAS BEEN SINUS TACHYCARDIA THROUGHOUT MOST OF THE NIGHT. CHEST X-RAY ORDERED FOR THIS AM IS PENDING.
[2021-03-29 07:51] VITALS: BP 141/98
--- NOTE | 2021-03-29 11:30 | NUR ---
PATIENT IS ALERT AND ORIENTED X4. THIS SHIFT SHE HAS REPORTED CONTINUED PAIN IN HER HEAD AND REPORTS FEELING NAUSEA. PATIENTS HEADACHE AND NAUSEA ARE BOTH TREATED WITH PRESCRIBED ORDERS. PATIENT STATES THAT SHE GETS NAUSEAUS EVERY TIME SHE GETS A MIGRAINE THIS IS HER NORMAL. PATIENT HAS ASKED MULTIPLE TIMES ABOUT HER DISCHARGE. PATIENT STATES TO THIS RN THAT SHE WOULD LIKE TO LEAVE AROUND NOON THAT WOULD WORK BEST FOR HER AND HER . PATIENT ENCOURAGED TO BE PATIENT, AND NURSING WILL KEEP HER UPDATED CHANGES OCCUR. SURGEON HAS BEEN CONTACTED. PATIENT ACKNOWLEDGES HER UNDERSTANDING. WILL CONTINUE TO MONITOR.
[2021-03-29 12:17] VITALS: BP 141/98
[2021-03-29 12:21] VITALS: BP 133/62
--- NOTE | 2021-03-29 13:25 | NUR ---
DISCHARGE NOTE: SW reviewed chart and spoke with nursing and attending physician. Pt is medically stable for discharge home today. No discharge needs identified. Pt's family to provide transportation home this afternoon. SW is available to assist should needs arise.
--- NOTE | 2021-03-29 14:02 | NUR ---
PATIENT IS DISCHARGED FROM THE FACILITY AT 1310. IV AND TELE DISCONTINUED. CHEST TUBE DRESSING CHANGED. ALL BELONGINGS ARE WITH PATIENT. PAIN MEDICATION PRESCRIPTION GIVEN TO PATIENT. PATIENT TAKEN DOWN BY WHEEL CHAIR.
== END 2021-03-29 13:49 | disposition home or self-care (01) | DRG 206 ==
LOC: ER 17:42 → EROBS 22:01 → 3W 03-26 18:05
PROVIDERS: Emergency Medicine; Family Medicine; ADMIT Surgery; ATTEND Surgery
PROC: 0W9B30Z Drainage of Left Pleural Cavity with Drainage Device, Percutaneous Approach (ICD-10-PCS; principal; 2021-03-25)
DX: S22.32XA Fracture of one rib, left side, initial encounter for closed fracture (principal); S27.0XXA Traumatic pneumothorax, initial encounter; E11.9 Type 2 diabetes mellitus without complications; I10 Essential (primary) hypertension; Z20.822 Contact with and (suspected) exposure to COVID-19; E87.6 Hypokalemia; Z86.718 Personal history of other venous thrombosis and embolism; Z88.6 Allergy status to analgesic agent; Z87.891 Personal history of nicotine dependence; W01.0XXA Fall on same level from slipping, tripping and stumbling without subsequent striking against object, initial encounter; Y93.89 Activity, other specified; Y92.89 Other specified places as the place of occurrence of the external cause; Y99.8 Other external cause status
CPT/HCPCS: 10879

== ENCOUNTER 2021-05-09 19:31 | Inpatient (IN) | payer OTHER ==
[~2021-05-09] VITALS: Ht 165.1 cm; Wt 75.3 kg
[~2021-05-09 19:31] MED LIST changes: +OXYCODONE HCL 55 MG PO
[2021-05-09 19:49] VITALS: BP 110/53
[2021-05-09 20:52] LABS: CALCIUM 9.4 mg/dL (8.5-10.1); CREATININE 1.6 mg/dL (0.6-1.0)
[2021-05-09 20:55] LABS: ALBUMIN 3.7 g/dL (3.4-5.0); TOTAL BILIRUBIN 0.4 mg/dL (0.2-1.0)
[2021-05-09 20:56] LABS: BASOPHILS 0.4 % (0.0-2.0); HEMATOCRIT 42.3 % (37.0-47.0); HEMOGLOBIN 11.8 gm/dL (12.0-15.0); LYMPHOCYTES 5.5 % (24.0-44.0); MCH 26.5 pg (26.0-34.0); MCV 94.9 fL (80.0-100.0); MONOCYTES 4.5 % (1.0-8.0); PLATELET COUNT 428 thou/uL (150-400); POLYS 89.6 % (36.0-66.0); RBC 4.45 mil/uL (4.20-5.00); RDW 17.1 % (10.5-14.5); WBC 16.8 thou/uL (4.0-11.0)
[2021-05-09 21:04] LABS: POTASSIUM 6.1 mmol/L (3.5-5.1)
[2021-05-09 21:05] LABS: BE(vivo) -26.8 mmol/L (-2 to +3); HCO3 3.5 mmol/L (22.0-26.0); PCO2 15.6 mmHg (35.0-45.0); PO2 115.7 mmHg (80.0-100.0); sO2 95.5 % (92.0-98.0)
[2021-05-09 21:06] LABS: pH 6.965 (7.360-7.450)
[2021-05-09 21:31] LABS: ANISOCYTOSIS 2+; POIKILOCYTOSIS 2+
[2021-05-09 22:48] LABS: URINE BILIRUBIN NEGATIVE (Negative); URINE BLOOD 2+ (Negative); URINE CLARITY CLEAR; URINE COLOR YELLOW; URINE GLUCOSE-RANDOM* 2+ (Negative); URINE KETONES 3+ (Negative); URINE LEUKOCYTES-REFLEX NEGATIVE (Negative); URINE NITRITE-REFLEX NEGATIVE (Negative); URINE PROTEIN (DIPSTICK) TRACE (Negative); URINE SPECIFIC GRAVITY 1.025 (1.005-1.035); URINE UROBILINOGEN 0.2 E.U./dl (0.2-1.0)
[2021-05-09 22:56] LABS: BACTERIA-REFLEX 1-9 Few /HPF (None Seen); SQUAMOUS 4-10 Moderate /LPF (0-3); URINE WBC-REFLEX 0-5 Rare /HPF (0-5)
[2021-05-09 22:57] LABS: CELLULAR CASTS 0-3 Few /LPF (None Seen); CRYSTALS None Seen /LPF (None Seen); MUCUS 0-3 Light strn/LPF (None Seen)
[2021-05-09 23:56] VITALS: BP 101/59
[2021-05-10] VITALS (26 sets, daily range): BP systolic 98–154; BP diastolic 49–83
[2021-05-10] MEDS ORDERED: ZESTRIL10 MG PO (00:29)
[2021-05-10 03:36] LABS: ABSOLUTE NEUTROPHILS 15.1 thou/uL (1.4-8.2); BASOPHILS 0.2 % (0.0-2.0); HEMATOCRIT 31.2 % (37.0-47.0); LYMPHOCYTES 12.7 % (24.0-44.0); MCH 26.7 pg (26.0-34.0); MCHC 31.1 g/dL (28.0-37.0); POLYS 80.1 % (36.0-66.0); RBC 3.64 mil/uL (4.20-5.00); RDW 15.4 % (10.5-14.5); WBC 18.8 thou/uL (4.0-11.0)
[2021-05-10 03:47] LABS: HEMOGLOBIN 9.7 gm/dL (12.0-15.0); MCV 85.8 fL (80.0-100.0); PLATELET COUNT 242 thou/uL (150-400)
--- NOTE | 2021-05-10 03:48 | NUR ---
ADMIT NOTE Pt arrived to unit shortly after 0000; ST, VSS; warm blankets provided. arm bands applied, fall precauctions in place. pt on insulin gtt at 6u/hr per DKA protocol started by ED RN, 1/2 NS at 250mL/hr. Pt oriented x4 but drowsy. ANGELO. Noted exp wheeze right lung; pt mentioned 2020 pt fell and broke ribs on left side and had a small 'stable' pneumo. HX smoker >12 yrs ago; social drinker. q1hr sugar checks per protocol. No c/o pain. no n/v; pt requesting ice chips. Lab times adjusted based on insulin gtt initiation. Will continue to monitor Franki SAEZ RN
[2021-05-10 04:03] LABS: ALBUMIN 2.5 g/dL (3.4-5.0); CALCIUM 7.6 mg/dL (8.5-10.1); CREATININE 1.2 mg/dL (0.6-1.0); MAGNESIUM 1.4 mg/dL (1.8-2.4); PHOSPHORUS 1.2 mg/dL (2.5-4.9); TOTAL BILIRUBIN 0.3 mg/dL (0.2-1.0); TOTAL PROTEIN 5.7 g/dL (6.4-8.2)
[2021-05-10 04:44] LABS: POTASSIUM 3.5 mmol/L (3.5-5.1)
[2021-05-10 08:14] LABS: ALBUMIN 2.7 g/dL (3.4-5.0); CALCIUM 8.2 mg/dL (8.5-10.1); CREATININE 1.1 mg/dL (0.6-1.0); MAGNESIUM 1.5 mg/dL (1.8-2.4); PHOSPHORUS 0.8 mg/dL (2.5-4.9)
[2021-05-10 13:23] LABS: ALBUMIN 2.6 g/dL (3.4-5.0); CALCIUM 7.8 mg/dL (8.5-10.1); MAGNESIUM 2.2 mg/dL (1.8-2.4); PHOSPHORUS 2.9 mg/dL (2.5-4.9); POTASSIUM 3.8 mmol/L (3.5-5.1)
--- NOTE | 2021-05-10 14:04 | NUR ---
Case discussed in ICU rounds and chart reviewed. 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 She is normally indep with gait and adl's and lives with her spouse and children. Her pcp is Dr. Romero and she has active health insurance in place for f/u care. Pt is being treated for recurrent DKA. No cm interventions are indicated at this time. DC time frame is uncertain as she is currently in the ICU. Will follow along should dc needs arise.
[2021-05-10 17:43] LABS: ALBUMIN 2.6 g/dL (3.4-5.0); CALCIUM 8.2 mg/dL (8.5-10.1); CREATININE 0.9 mg/dL (0.6-1.0); PHOSPHORUS 2.4 mg/dL (2.5-4.9); POTASSIUM 3.4 mmol/L (3.5-5.1)
--- NOTE | 2021-05-10 18:07 | NUR ---
DR. CLAY CALLED LAB, K 3.4. GENERAL UPDATE GIVEN. ORDERS GIVEN.
--- NOTE | 2021-05-10 23:28 | NUR ---
This RN spoke to OLIVE Vazquez around 2029 regarding patients nausea and headache. Also discussed insulin gtt and fluids and patients presentation. Orders received, Will continue to monitor.
[2021-05-11] VITALS (14 sets, daily range): BP systolic 145–178; BP diastolic 76–107
[2021-05-11 04:10] LABS: ABSOLUTE NEUTROPHILS 9.5 thou/uL (1.4-8.2); BASOPHILS 0.1 % (0.0-2.0); EOSINOPHILS 0.1 % (0.0-3.0); HEMATOCRIT 31.3 % (37.0-47.0); LYMPHOCYTES 13.2 % (24.0-44.0); MCH 26.8 pg (26.0-34.0); MCHC 31.8 g/dL (28.0-37.0); MCV 84.3 fL (80.0-100.0); MONOCYTES 10.1 % (1.0-8.0); PLATELET COUNT 189 thou/uL (150-400); POLYS 76.5 % (36.0-66.0); RBC 3.71 mil/uL (4.20-5.00); RDW 15.7 % (10.5-14.5); WBC 12.4 thou/uL (4.0-11.0)
[2021-05-11 04:14] LABS: ALBUMIN 2.3 g/dL (3.4-5.0); ANION GAP 11 mmol/L (7-16); BUN 13 mg/dL (7-18); CALCIUM 8.1 mg/dL (8.5-10.1); CHLORIDE 111 mmol/L (98-107); CO2 19 mmol/L (21-32); CREATININE 0.7 mg/dL (0.6-1.0); DIRECT BILIRUBIN < 0.1 mg/dL (<0.1-0.2); GLUCOSE 131 mg/dL (74-106); MAGNESIUM 1.8 mg/dL (1.8-2.4); PHOSPHORUS 1.3 mg/dL (2.5-4.9); POTASSIUM 3.5 mmol/L (3.5-5.1); SGOT 19 U/L (15-37); SGPT 16 U/L (30-65); SODIUM 141 mmol/L (136-145); TOTAL BILIRUBIN 0.2 mg/dL (0.2-1.0); TOTAL PROTEIN 5.4 g/dL (6.4-8.2)
--- NOTE | 2021-05-11 09:23 | NUR ---
THIS RN SPOKE WITH THE PATIENT'S DAUGHTER, CORINNE, FROM AND SHE WAS UPDATED AND EDUCATED ON THE PATIENT'S CONDITION AND PLAN OF CARE.
--- NOTE | 2021-05-11 10:38 | NUR ---
PATIENT TRANSFERRED TO ROOM 218 AT 1035. REPORT GIVEN TO SHELBIE GOINS PRIOR. ALL PATIENT BELONGINGS ACCOUNTED FOR AND TAKEN WITH THE PATIENT WELL THE CHART. POTASSIUM PHOSPHATE AND INSULIN LISPOR TAKEN WELL AND HANDED TO SHELBIE GOINS. DAIJA ACEVES, OF THE PATIENT, CALLED AT 1041 AND UPDATED.
[2021-05-12 04:41] LABS: ABSOLUTE NEUTROPHILS 5.4 thou/uL (1.4-8.2); BASOPHILS 0.3 % (0.0-2.0); EOSINOPHILS 0.1 % (0.0-3.0); HEMATOCRIT 32.4 % (37.0-47.0); HEMOGLOBIN 10.6 gm/dL (12.0-15.0); MCH 26.7 pg (26.0-34.0); MCHC 32.8 g/dL (28.0-37.0); MCV 81.3 fL (80.0-100.0); MONOCYTES 8.1 % (1.0-8.0); PLATELET COUNT 176 thou/uL (150-400); POLYS 74.5 % (36.0-66.0); RBC 3.98 mil/uL (4.20-5.00); RDW 15.9 % (10.5-14.5); WBC 7.3 thou/uL (4.0-11.0)
--- NOTE | 2021-05-12 04:48 | NUR ---
ASSUMED PT CARE AT 1900, DROWSY AT THE START OF SHIFT, ST ON TELE, PRN PAIN MEDS GIVEN FOR HEADACHEX1 WITH RELIEF, ASSESSMENTS CHARTED, BP ELEVATED IN THE 170S SYSTOLIC, SHINGLE WEAVER NOTIFIED, ORDERS RECEIVED, BS STABLE, POOR APPETITE WITH NAUSEA NOTED, RAMEY WITH ADEQUATE URINE OUTPUT, MORE AWAKE THIS AM, WILL CONTINUE TO MONITOR PER POC
[2021-05-12 04:58] VITALS: BP 158/108
[2021-05-12 04:58] LABS: ALBUMIN 2.5 g/dL (3.4-5.0); CALCIUM 8.4 mg/dL (8.5-10.1); CREATININE 0.4 mg/dL (0.6-1.0); MAGNESIUM 1.4 mg/dL (1.8-2.4); PHOSPHORUS 2.6 mg/dL (2.5-4.9); TOTAL BILIRUBIN 0.5 mg/dL (0.2-1.0); TOTAL PROTEIN 5.9 g/dL (6.4-8.2)
[2021-05-12 05:04] LABS: POTASSIUM 2.8 mmol/L (3.5-5.1)
[2021-05-12 08:05] VITALS: BP 174/115
[2021-05-12 16:15] VITALS: BP 146/80
[2021-05-12 20:15] VITALS: BP 148/108
--- NOTE | 2021-05-13 03:05 | NUR ---
ASSESSMENTS CHARTED, MEDS CHARTED GIVEN. RESTING IN BED DURING SHIFT.
[2021-05-13 04:45] VITALS: BP 111/62; BP 156/106
[2021-05-13 05:08] LABS: BASOPHILS 0.6 % (0.0-2.0); EOSINOPHILS 1.7 % (0.0-3.0); HEMATOCRIT 38.6 % (37.0-47.0); HEMOGLOBIN 12.3 gm/dL (12.0-15.0); LYMPHOCYTES 29.6 % (24.0-44.0); MCH 26.3 pg (26.0-34.0); MCHC 31.9 g/dL (28.0-37.0); MCV 82.5 fL (80.0-100.0); MONOCYTES 11.2 % (1.0-8.0); PLATELET COUNT 166 thou/uL (150-400); POLYS 56.9 % (36.0-66.0); RBC 4.67 mil/uL (4.20-5.00); RDW 16.1 % (10.5-14.5); WBC 5.4 thou/uL (4.0-11.0)
[2021-05-13 05:10] LABS: ALBUMIN 2.5 g/dL (3.4-5.0); CALCIUM 8.3 mg/dL (8.5-10.1); CREATININE 0.5 mg/dL (0.6-1.0); PHOSPHORUS 2.6 mg/dL (2.5-4.9); POTASSIUM 3.4 mmol/L (3.5-5.1)
[2021-05-13 07:51] VITALS: BP 150/102
--- NOTE | 2021-05-13 10:17 | NUR ---
PATIENT TO TRANSFER UP TO [facility]OU[facility]. REPORT GIVEN TO RM.
[2021-05-13] MEDS ORDERED: AMLODIPINE BESY10 MG PO (14:01)
[2021-05-13] MEDS ORDERED: LOPRESSOR50 MG PO (14:08)
[2021-05-13] MEDS ORDERED: KLOR-CON 1010 MEQ PO (14:09)
[2021-05-13 14:15] VITALS: BP 150/102
--- NOTE | 2021-05-13 15:12 | NUR ---
PT TRANSFERRED TO UNIT FROM CCU. ORIETNTATED PT TO ROOM AND SURROUNDINGS. DENIE ANY PAIN. SETLED PT. VSS. PT RECIEVED POTASSIUM AND IV MAG PER ORDER. PIVS REMOVED PRIOR TO DISCHARGE. 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 SAFELY DISCHARGED.
== END 2021-05-13 15:24 | disposition home or self-care (01) | DRG 638 ==
LOC: ER 19:31 → ICU 22:13 → EROBS 22:13 → ICU 05-10 00:55 → 2N 05-11 10:42 → 4S 05-13 10:17
PROVIDERS: Emergency Medicine; Internal Medicine; Nurse Practitioner Family; ADMIT Hospitalist; ATTEND Hospitalist
DX: E10.10 Type 1 diabetes mellitus with ketoacidosis without coma (principal); N17.9 Acute kidney failure, unspecified; I10 Essential (primary) hypertension; G43.909 Migraine, unspecified, not intractable, without status migrainosus; M41.9 Scoliosis, unspecified; E87.6 Hypokalemia; E83.42 Hypomagnesemia; D63.8 Anemia in other chronic diseases classified elsewhere; R53.81 Other malaise; Z86.718 Personal history of other venous thrombosis and embolism; Z88.6 Allergy status to analgesic agent; Z83.3 Family history of diabetes mellitus; Z87.891 Personal history of nicotine dependence; Z79.4 Long term (current) use of insulin; Z20.822 Contact with and (suspected) exposure to COVID-19
CPT/HCPCS: 10078; 10797

== ENCOUNTER 2021-05-15 00:43 | Inpatient (IN) | payer OTHER ==
[2021-05-15] VITALS (24 sets, daily range): BP systolic 89–137; BP diastolic 51–94
[~2021-05-15] VITALS: Ht 165.1 cm; Wt 78.9 kg
[~2021-05-15 00:43] MED LIST changes: +AMLODIPINE BESY10 MG PO; +KLOR-CON 1010 MEQ PO; +LOPRESSOR50 MG PO; +ZESTRIL10 MG PO
[2021-05-15 01:29] LABS: BE(vivo) 0.2 mmol/L (-2 to +3); HCO3 25.7 mmol/L (22.0-26.0); PCO2 VENOUS 44.9 mmHg (41.0-51.0); PO2 VENOUS 29.1 mmHg (35.0-45.0)
[2021-05-15 01:45] LABS: ABSOLUTE NEUTROPHILS 5.1 thou/uL (1.4-8.2); BASOPHILS 0.4 % (0.0-2.0); EOSINOPHILS 0.3 % (0.0-3.0); HEMATOCRIT 41.7 % (37.0-47.0); HEMOGLOBIN 13.4 gm/dL (12.0-15.0); LYMPHOCYTES 21.4 % (24.0-44.0); MCH 26.7 pg (26.0-34.0); MCHC 32.1 g/dL (28.0-37.0); MCV 83.1 fL (80.0-100.0); MONOCYTES 10.6 % (1.0-8.0); POLYS 67.3 % (36.0-66.0); RBC 5.02 mil/uL (4.20-5.00); RDW 15.9 % (10.5-14.5); WBC 7.6 thou/uL (4.0-11.0)
[2021-05-15 01:48] LABS: CALCIUM 8.9 mg/dL (8.5-10.1); CREATININE 0.9 mg/dL (0.6-1.0); POTASSIUM 4.3 mmol/L (3.5-5.1)
[2021-05-15 01:58] LABS: PLATELET COUNT 247 thou/uL (150-400)
[2021-05-15 02:02] LABS: TOTAL BILIRUBIN 0.4 mg/dL (0.2-1.0); TOTAL PROTEIN 7.4 g/dL (6.4-8.2)
[2021-05-15 02:33] LABS: URINE BILIRUBIN 3+ (Negative); URINE BLOOD 2+ (Negative); URINE CLARITY SL CLOUDY; URINE COLOR YELLOW; URINE GLUCOSE-RANDOM* TRACE (Negative); URINE KETONES 1+ (Negative); URINE LEUKOCYTES-REFLEX TRACE (Negative); URINE NITRITE-REFLEX NEGATIVE (Negative); URINE PROTEIN (DIPSTICK) 1+ (Negative); URINE SPECIFIC GRAVITY >= 1.030 (1.005-1.035)
[2021-05-15 02:41] LABS: BACTERIA-REFLEX 1-9 Few /HPF (None Seen); CELLULAR CASTS 0-3 Few /LPF (None Seen); HYALINE CASTS 4-10 Moderate /LPF (None Seen); MUCUS >6 Heavy strn/LPF (None Seen); SQUAMOUS 4-10 Moderate /LPF (0-3); URINE WBC-REFLEX 0-5 Rare /HPF (0-5)
[2021-05-15 02:42] LABS: CRYSTALS None Seen /LPF (None Seen)
[2021-05-15] MEDS ORDERED: HUMALOG JU100 UNIT/1 SUBQ (06:00)
--- NOTE | 2021-05-15 07:21 | EKG ---
[place] [address] 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 <ELECTRONICALLY SIGNED> By: Jethro Guerrero MD, FACC 05/15/21 07 1 1 Jethro Guerrero MD, FAC /EPI
--- NOTE | 2021-05-15 11:21 | NUR ---
1115: PAGED DR. BENSON REGARDING NEW ORDERS FOR LANTUS. PT EXPRESSES CONCERNS WITH TAKING THIS AM SHE TOOK A DOSE YESTERDAY EVENING AND TYPICALLY TAKES HER DOSE IN THE EVENING TIME. AWAITING RETURN CALL AT THIS TIME.
--- NOTE | 2021-05-15 11:28 | NUR ---
1130: INTERDISCIPLINARY ROUNDS AT THIS TIME, PT PROGRESSING ON POC EVIDENCED BY IMPROVEMENT IN SYMPTOMS, PTT THERAPEUTIC WITH 1007 PTT, NO CHANGES MADE TO HEPARIN GTT AT THIS TIME PER PROTOCOL. ECHO AT BEDSIDE.
--- NOTE | 2021-05-15 12:45 | 2DMMODE ---
[facility] [place] [address] 2 D/M-MODE ECHOCARDIOGRAM Name: LUPE ACEVES Room #: 242-P ADM IN M.R.#: [id number] Admission: 05/15/21 Attend Phys: Carlos Eaton MD Discharge: Date of : 76 Report #: [id number] THIS REPORT FOR: cc: Jimmy Romero MD, Neal A. MD Santiago, Patrick MD [facility] ~ APPROVED REPORT Study performed: 05/15/2021 11:31:43 EXAM: Comprehensive 2D, Doppler, and color-flow Echocardiogram Patient Location: ICU Room #: 242 Status: routine BSA: 1.76 HR: 110 bpm BP: 101/61 mmHg Rhythm: Tachycardia Other Information Study Quality: Good Indications Pulmonary Embolism Pulmonary Hypertension Diabetes Dyspnea Hypertension/HDD 2D Dimensions RVDd: 53.89 mm IVSd: 11.07 (7-11mm) LVOT Diam: 20.14 (18-24mm) LVDd: 33.07 mm PWd: 11.11 (7-11mm) Ascending Ao: 29.13 (22-36mm) LVDs: 24.27 (25-40mm) Left Atrium: 22.69 (27-40mm) Aortic Root: 28.93 mm IVC: 23.00 mm Volumes Left Atrial Volume (Systole) Single Plane 4CH: 34.59 mL Single Plane 2CH: 32.39 mL LA ESV Index: 21.00 mL/m2 Aortic Valve [facility] [address] [place] [address] 2 D/M-MODE ECHOCARDIOGRAM Name: LUPE ACEVES Room #: 242-P ADM IN .R.#: [id number] Admission: 05/15/21 Attend Phys: Carlos Eaton MD Discharge: Date of : 76 Report #: [id number] AoV Peak Bebo.: 1.12 m/s AO Peak Gr.: 5.06 mmHg LVOT Max P.88 mmHg LVOT Max V: 0.85 m/s ADRIÁN Vmax: 2.40 cm2 Pulmonary Valve PV Peak Bebo.: 0.56 m/s PV Peak Gr.: 1.28 mmHg Tricuspid Valve TR Peak Bebo.: 2.73 m/s TR Peak Gr.: 29.73 mmHg PA Pressure: 45.00 mmHg Left Ventricle The left ventricle is normal size. There is normal LV segmental wall motion. Mild concentric left ventricular hypertrophy. The left ventricular systolic function is normal. The left ventricular ejection fraction is within the normal range. LVEF is 55-60%. This study is not technically sufficient to allow evaluation of the LV diastolic function. Right Ventricle Right ventricle is dilated. Right ventricle is hypokinetic. Atria The left atrium size is normal. Right atrium is at the upper limits of normal. Aortic Valve The aortic valve is normal in structure. No aortic regurgitation is present. There is no aortic valvular stenosis. Mitral Valve The mitral valve is normal in structure. There is no mitral valve regurgitation noted. No evidence of mitral valve stenosis. Tricuspid Valve The tricuspid valve is normal in structure. There is mild tricuspid regurgitation. Estimated PAP 45 mmHg. There is moderate pulmonary hypertension. Pulmonic Valve The pulmonary valve is normal in structure. There is no pulmonic valvular regurgitation. [facility] [address] [place] [address] 2 D/M-MODE ECHOCARDIOGRAM Name: LUPE ACEVES Room #: 242-P [facility] IN ..#: [id number] Admission: 05/15/21 Attend Phys: Carlos Eaton MD Discharge: Date of : 76 Report #: [id number] Great Vessels The aortic root is normal in size. The inferior vena cava is dilated with no inspiratory collapse. Pericardium There is no pericardial effusion. <Conclusion> Normal left ventricle size with mild concentric hypertrophy Ejection fraction 55% "D-shaped "left ventricle compatible with right ventricular pressure/volume overload Right ventricle mildly dilated/hypokinetic Normal atrial size Normal aortic/mitral valve structure and function Mild tricuspid valve insufficiency Moderate pulmonary hypertension PA pressure estimated 45 mmHg No pericardial effusion Normal aortic root size. <ELECTRONICALLY SIGNED> By: Jethro Guerrero MD, [facility] 05/15/21 1244 1244 1244 Jethro Guerrero MD, FACC /INF
--- NOTE | 2021-05-15 12:51 | NUR ---
1230: Dr. BOOTHE AT BEDSIDE. DISCUSSED PT'S LANTUS ORDER. NOTIFIED HER PT REQUESTS TO TAKE TONIGHT HER [id number] DOSE LAST NIGHT. OKAY TO HOLD UNTIL TONIGHT PER MD.
--- NOTE | 2021-05-15 18:59 | NUR ---
1826: REPEAT BG AFTER TREATMENT OF HYPOGLYCEMIA IMPROVED
--- NOTE | 2021-05-15 18:59 | NUR ---
1742: PT WITH EPISODE OF HYPOGLYCEMIA, BG 50. PT DENIES ACUTE SYMPTOMS. PROVIDED WITH 120MLS OF APPLE JUICE AND DINNER TRAY AT BEDSIDE.
[2021-05-16] VITALS (7 sets, daily range): BP systolic 108–128; BP diastolic 70–83
[2021-05-16 05:17] LABS: HEMATOCRIT 34.5 % (37.0-47.0); MCH 26.7 pg (26.0-34.0); MCHC 32.3 g/dL (28.0-37.0); MCV 82.5 fL (80.0-100.0); RBC 4.18 mil/uL (4.20-5.00); WBC 6.6 thou/uL (4.0-11.0)
[2021-05-16 05:19] LABS: CALCIUM 8.4 mg/dL (8.5-10.1); CREATININE 0.7 mg/dL (0.6-1.0)
[2021-05-16 05:29] LABS: HEMOGLOBIN 11.2 gm/dL (12.0-15.0)
--- NOTE | 2021-05-16 12:24 | NUR ---
PATIENT TRANSFERRED TO ROOM 204 AT 1215. PATIENT'S BELONGINGS ACCOUNTED FOR AND TAKEN WITH THE PATIENT TO NEW ROOM.
--- NOTE | 2021-05-16 12:25 | NUR ---
PATIENT STATED SHE WOULD NOTIFY HER FAMILY THAT SHE TRANSFERRED TO NEW ROOM.
--- NOTE | 2021-05-17 02:41 | NUR ---
ASSUMED PT CARE AT AROUND 1915 HRS. PT ALERT AND ORIENTED. UP AD ENRICO IN ROOM. ON ROOM AIR AND DOES NOT APPEAR TO BE IN DISTRESS. VOIDING ADEQUTELY. ELIQUIS STARTED AND HEPARIN STOPPED AT 2100HRS.
[2021-05-17 03:46] VITALS: BP 158/94
[2021-05-17 07:30] VITALS: BP 144/96
[2021-05-17] MEDS ORDERED: HUMALOG100 UNIT/1 SUBQ (09:28)
[2021-05-17] MEDS ORDERED: LANTUS SUBQ (09:28)
[2021-05-17] MEDS ORDERED: PEPCID20 MG PO (09:28)
[2021-05-17] MEDS ORDERED: ELIQUIS5 MG PO (09:28)
[2021-05-17 09:59] VITALS: BP 144/96
[2021-05-17] MEDS ORDERED: XARELTO20 MG PO (10:40)
[2021-05-17] MEDS ORDERED: XARELTO1 EACH PO (10:40)
[2021-05-17] MEDS ORDERED: TOUJEO MAX300 UNIT/1 SUBQ (10:40)
--- NOTE | 2021-05-17 10:53 | NUR ---
patient discharged. iv and tele removed. education given - no questions. patient stopped by pharmacy to get medication and took home.
[2021-05-17 10:55] VITALS: BP 144/96
--- NOTE | 2021-05-17 11:07 | NUR ---
Pt dcing home today with outpt f/u. coupon cards given for juana script. Pt aware that she can get samples at her pcp office if needed. No other cm interventions indicated.
== END 2021-05-17 10:59 | disposition home or self-care (01) | DRG 175 ==
LOC: ER 00:43 → EROBS 03:57 → ICU 03:57 → 2N 05-16 12:25
PROVIDERS: Emergency Medicine; Internal Medicine Pulmonary Disease; Nurse Practitioner Family; ADMIT Hospitalist; ATTEND Hospitalist
DX: I26.99 Other pulmonary embolism without acute cor pulmonale (principal); J96.01 Acute respiratory failure with hypoxia; E10.9 Type 1 diabetes mellitus without complications; M41.9 Scoliosis, unspecified; I95.9 Hypotension, unspecified; I27.20 Pulmonary hypertension, unspecified; I10 Essential (primary) hypertension; G43.909 Migraine, unspecified, not intractable, without status migrainosus; Z20.822 Contact with and (suspected) exposure to COVID-19; Z86.718 Personal history of other venous thrombosis and embolism; Z79.899 Other long term (current) drug therapy; Z88.5 Allergy status to narcotic agent; Z82.49 Family history of ischemic heart disease and other diseases of the circulatory system
CPT/HCPCS: 10078; 10081; 10203

== ENCOUNTER → 2021-06-14 | Outpatient (CLI) | payer OTHER ==
[~2021-06-14] MED LIST changes: +ELIQUIS5 MG PO; +HUMALOG JU100 UNIT/1 SUBQ; +LANTUS SUBQ; +XARELTO1 EACH PO; +XARELTO20 MG PO
[2021-06-14 05:13] LABS: ABSOLUTE NEUTROPHILS 2.4 thou/uL (1.4-8.2); BASOPHILS 0.8 % (0.0-2.0); EOSINOPHILS 2.9 % (0.0-3.0); HEMATOCRIT 33.9 % (37.0-47.0); HEMOGLOBIN 10.6 gm/dL (12.0-15.0); LYMPHOCYTES 39.1 % (24.0-44.0); MCH 26.4 pg (26.0-34.0); MCHC 31.2 g/dL (28.0-37.0); MCV 84.6 fL (80.0-100.0); MONOCYTES 7.1 % (1.0-8.0); PLATELET COUNT 277 thou/uL (150-400); POLYS 50.1 % (36.0-66.0); RBC 4.01 mil/uL (4.20-5.00); RDW 16.8 % (10.5-14.5); WBC 4.9 thou/uL (4.0-11.0)
[2021-06-14 05:24] LABS: ALBUMIN 3.1 g/dL (3.4-5.0); ANION GAP 9 mmol/L (7-16); BUN 16 mg/dL (7-18); CALCIUM 8.6 mg/dL (8.5-10.1); CHLORIDE 100 mmol/L (98-107); CHOLESTEROL 152 mg/dL (<200); CO2 26 mmol/L (21-32); CREATININE 0.7 mg/dL (0.6-1.0); GLUCOSE 484 mg/dL (74-106); HDL CHOLESTEROL 63 mg/dL (>40); LDL CHOLESTEROL 71 mg/dL (<100); POTASSIUM 3.9 mmol/L (3.5-5.1); SGOT 9 U/L (15-37); SGPT 14 U/L (30-65); SODIUM 135 mmol/L (136-145); TC:HDL 2.4 Ratio (Not establshd); TOTAL BILIRUBIN 0.2 mg/dL (0.2-1.0); TOTAL PROTEIN 6.9 g/dL (6.4-8.2); TRIGLYCERIDE 94 mg/dL (<150); VLDL 19 mg/dL (<40)
[2021-06-14 05:50] LABS: SERUM ASSESSMENT Clear
[2021-06-15 07:08] LABS: GLYCOHEMOGLOBIN (HGB A1C) 9.6 % (4.8-5.6)
== END ==
LOC: LAB 06-13 07:31
PROVIDERS: ATTEND Nurse Practitioner
DX: E10.10 Type 1 diabetes mellitus with ketoacidosis without coma (principal)